=== PATIENT | female | born 1995 | race American Indian/Alaskan Native ===

== ENCOUNTER 2019-09-29 18:59 | Emergency (ER) | payer SELFPAY ==
--- NOTE | 2019-09-29 19:35 | Event Note ---
ED Screening Note ED Screening Note: pt presents for N/V yesterday no diarrhea states she felt lightheaded she did not have LOC no abd pain no fever no sick contacts traveled from [place] two months ago PMHx seizures-states she takes keppra, she was taken off keppra 4-5 months ago allergy: clarithromycin LNMP: 09/07/2019 This initial assessment/diagnostic orders/clinical plan/treatment(s) is/are subject to change based on patients health status, clinical progression and re- assessment by fellow clinical providers in the ED. Further treatment and workup at subsequent clinical providers discretion. Patient/guardian urged not to elope from the ED as their condition may be serious if not clinically assessed and managed. Initial orders include: labs, UA, urine preg
[2019-09-29 19:56] LABS: Basophils % (Auto) 0.3 % (0.0-1.8); Eosinophils # (Auto) 0.1 K/mm3 (0.0-0.4); Eosinophils % (Auto) 0.9 % (0.0-4.3); Hematocrit 40.2 % (30.3-42.9); Hemoglobin 13.7 gm/dl (10.1-14.3); Lymphocytes # (Auto) 1.8 K/mm3 (1.2-5.4); Lymphocytes % (Auto) 23.7 % (13.4-35.0); Mean Corpuscular HGB Conc 34 % (30-34); Mean Corpuscular Volume 90 fl (79-97); Monocytes # (Auto) 0.3 K/mm3 (0.0-0.8); Monocytes % (Auto) 4.6 % (0.0-7.3); Platelet Count 158 K/mm3 (140-440); Red Blood Count 4.48 M/mm3 (3.65-5.03); Red Cell Distribution Width 14.4 % (13.2-15.2)
[2019-09-29 20:16] LABS: Alanine Aminotransferase 10 units/L (7-56); BUN/Creatinine Ratio 10; Blood Urea Nitrogen 6 mg/dL (7-17); Calcium 9.3 mg/dL (8.4-10.2); Hemolysis Index 30
[2019-09-29 20:27] LABS: Bilirubin,Urine NEG (Negative); Blood,Urine SM (Negative); Color,Urine Yellow (Yellow); Mucus,Urine FEW /HPF; Protein,Urine <15 mg/dL mg/dL (Negative); Urobilinogen,Urine < 2.0 mg/dL (<2.0)
[2019-09-29 20:29] LABS: HCG Qualitative,Urine Negative (Negative)
--- NOTE | 2019-09-29 20:57 | Emergency Department Report ---
ED General Adult HPI - General Chief complaint: Syncope Stated complaint: SYNCOPE Time Seen by Provider: 09/29/19 19:32 Source: patient Mode of arrival: Stretcher Limitations: No Limitations - History of Present Illness Initial comments: 24-year-old -[place] female presents emergency department complaining of nausea and vomiting for the last 2 days which was followed by a an episode of syncope today. Patient states she was squatting down in her bathroom and vomited 3 consecutive times and upon standing to walk out she grew lightheaded and may have blacked out for a brief moment. States that she has not been vomiting since that time or prior to that time she thought that her symptoms had improved reports no headache, no blurred vision, no chest pain, no dizziness, no fever, chills, sweats Severity scale (0 -10): 0 - Related Data Previous Rx's Medication Instructions Recorded Last Taken Type Ondansetron [Zofran ODT TAB] 8 mg PO Q8HR #20 tab.rapdis 09/29/19 Unknown Rx Allergies Allergy/AdvReac Type Severity Reaction Status Date / Time clarithromycin [From Biaxin] AdvReac Hives Verified 09/29/19 19:14 ED Review of Systems ROS: Stated complaint: SYNCOPE Other details as noted in HPI Comment: All other systems reviewed and negative ED Past Medical Hx - Past Medical History Previous Medical History?: Yes Hx Seizures: Yes - Surgical History Past Surgical History?: No - Social History Smoking Status: Never Smoker Substance Use Type: None - Medications Home Medications: Home Medications Medication Instructions Recorded Confirmed Last Taken Type Ondansetron [Zofran ODT TAB] 8 mg PO Q8HR #20 tab.rapdis 09/29/19 Unknown Rx ED Physical Exam - General Limitations: No Limitations General appearance: alert, in no apparent distress - Head Head exam: Present: atraumatic, normocephalic - Eye Eye exam: Present: normal appearance, PERRL, EOMI, other (Negative funduscopic examination). Absent: nystagmus Pupils: Present: normal accommodation - ENT ENT exam: Present: normal exam, normal orophraynx, mucous membranes moist, TM's normal bilaterally - Neck Neck exam: Present: normal inspection - Respiratory Respiratory exam: Present: normal lung sounds bilaterally. Absent: respiratory distress, wheezes, rales, chest wall tenderness - Cardiovascular Cardiovascular Exam: Present: regular rate, normal rhythm, normal heart sounds. Absent: bradycardia, tachycardia, systolic murmur, diastolic murmur, rubs, gallop - GI/Abdominal GI/Abdominal exam: Present: soft, normal bowel sounds - Extremities Exam Extremities exam: Present: normal inspection - Back Exam Back exam: Present: normal inspection - Neurological Exam Neurological exam: Present: alert, oriented X3, CN II-XII intact, normal gait, reflexes normal, other (Romberg is negative. Normal [id number] gait coordinated and smooth). Absent: motor sensory deficit - Psychiatric Psychiatric exam: Present: normal affect, normal mood - Skin Skin exam: Present: warm, dry, intact, normal color. Absent: rash ED Course Vital Signs 09/29/19 09/29/19 19:15 19:24 Temperature 98.6 F 98.6 F Pulse Rate 96 H 96 H Respiratory 18 18 Rate Blood Pressure 139/86 Blood Pressure 139/86 [Left] O2 Sat by Pulse 98 99 Oximetry ED Medical Decision Making - Lab Data Result diagrams: 09/29/19 19:46 09/29/19 19:46 - Medical Decision Making This 24-year-old morbidly obese female patient presents with symptoms consistent with syncope, most likely due to vasovagal origin. Differential diagnosis includes vasovagal syncope, seizure, dehydration ,reflux cyst syncope. Low suspicion for orthostatic syncope given lack of dehydration, no evidence of acute life-threatening hemorrhage. Presentation not consistent with seizures given short course, no postictal state, no seizure activity. Low suspicion for acute neurologic catastrophe is to include intracranial cranial hemorrhage given lack of trauma, risk factors for bleeding diathesis. Low suspicion for vascular catastrophe to include PE, thoracic aortic dissection, AAA rupture. The presentation consistent not consistent with acute life-threatening arrhythmia, structural heart disease, electrical conduction abnormalities or ACS. However given age cardio risk factor factors and history and physical will work-up and admit to telemetry Critical care attestation.: If time is entered above; I have spent that time in minutes in the direct care of this critically ill patient, excluding procedure time. ED Disposition Clinical Impression: Nausea & vomiting, Pre-syncope Disposition: DC-01 TO HOME OR SELFCARE Is pt being admited?: No Does the pt Need Aspirin: No Condition: Stable Instructions: Near Syncope (ED), Acute Nausea and Vomiting (ED), Syncope (ED) Prescriptions: Ondansetron [Zofran ODT TAB] 8 mg PO Q8HR #20 tab.rapdis Referrals: PRIMARY CARE, [Primary Care Provider] - 3-5 Days
[2019-09-29] MEDS ORDERED: SODIUM CHLORIDE 0.9% 1000 ML 1,000 ML IV ONE (21:11)
[2019-09-29] MEDS ORDERED: SODIUM CHLORIDE 0.9% 1000 ML 2,000 ML ONE (21:13)
[2019-09-29 23:28] VITALS: BP 120/70
== END 2019-09-29 23:35 | disposition home or self-care (01) ==
LOC: ED 18:59
DX: R11.2 Nausea with vomiting, unspecified (principal); R55 Syncope and collapse; R56.9 Unspecified convulsions; Z79.899 Other long term (current) drug therapy; Z88.1 Allergy status to other antibiotic agents
CPT/HCPCS: 36415; 80053; 81001; 81025; 83690; 85025; 96360; 99284; J7030